=== PATIENT | female | born 1960 | race Caucasian/White ===

== ENCOUNTER 2019-03-08 16:07 | Emergency (ER) | payer MEDICAID, OTHER ==
[~2019-03-08] VITALS: Ht 152.4 cm; Wt 86.4 kg
[2019-03-08] MEDS ORDERED: METF-960 PO (16:25)
[2019-03-08] MEDS ORDERED: [UNRECOGNIZED DRUG - OTHER] PO (16:25)
[2019-03-08] MEDS ORDERED: EMPA10TA PO (16:25)
[2019-03-08] MEDS ORDERED: LISI-661 PO (16:25)
[2019-03-08] MEDS ORDERED: HYDR25TA PO (16:25)
[2019-03-08 16:30] LABS: GLUCOSE,POINT OF CARE 262 MG/DL (70-110)
[2019-03-08] MEDS ORDERED: CYCLOBENZAPRINE HCL 10 MG TABLET PO ONE (17:30)
[2019-03-08] MEDS ORDERED: LIDOCAINE 5% TRANSDERMAL PATCH TD ONE (17:30)
[2019-03-08] MEDS ORDERED: KETOROLAC TROMETHAMINE 30 MG/ML VIAL IM ONE (17:30)
[2019-03-08] MEDS ORDERED: HYDROCODONE/ACETAMINOPHEN 5-325 MG TABLET PO ONE (17:30)
[2019-03-08 19:16] VITALS: BP 134/65
== END 2019-03-08 19:19 | disposition home or self-care (01) ==
LOC: EMS 16:17
DX: M54.5 Low back pain (principal); I10 Essential (primary) hypertension; E11.9 Type 2 diabetes mellitus without complications; E78.00 Pure hypercholesterolemia, unspecified; Z79.84 Long term (current) use of oral hypoglycemic drugs; Z79.899 Other long term (current) drug therapy
CPT/HCPCS: 82962; 96372; 99284; J1885

== ENCOUNTER 2020-10-12 14:24 | Emergency (ER) | payer OTHER ==
[~2020-10-12] VITALS: Ht 154.9 cm; Wt 90.9 kg
[~2020-10-12 14:24] MED LIST: EMPA10TA PO; HYDR25TA2 PO; LISI-893 PO; METF-960 PO; [UNRECOGNIZED DRUG - OTHER] PO
[2020-10-12 14:32] VITALS: BP 199/96
[2020-10-12] MEDS ORDERED: SIMV-260 PO (14:51)
[2020-10-12] MEDS ORDERED: DICLOFENAC SODIUM 1% 100 GM GEL [2GM] TP ONE (15:30)
[2020-10-12] MEDS ORDERED: DIAZEPAM 5 MG TABLET PO ONE (15:30)
[2020-10-12] MEDS ORDERED: ACETAMINOPHEN 500 MG TABLET PO ONE (15:30)
[2020-10-12] MEDS ORDERED: KETOROLAC TROMETHAMINE 30 MG/ML VIAL IM ONE (15:30)
== END 2020-10-12 17:36 | disposition home or self-care (01) ==
LOC: EMS 14:30
DX: M75.31 Calcific tendinitis of right shoulder (principal); E11.9 Type 2 diabetes mellitus without complications; E78.00 Pure hypercholesterolemia, unspecified; I10 Essential (primary) hypertension; Z90.89 Acquired absence of other organs; Z79.84 Long term (current) use of oral hypoglycemic drugs
CPT/HCPCS: 73030; 82962; 96372; 99284; J1885

== ENCOUNTER 2023-01-17 20:59 | Emergency (ER) | payer OTHER ==
[~2023-01-17] VITALS: Ht 152.4 cm; Wt 82.7 kg
[~2023-01-17 20:59] MED LIST changes: -EMPA10TA PO; -LISI-893 PO; +METF-1211 PO; -METF-960 PO; +SIMV-260 PO; -[UNRECOGNIZED DRUG - OTHER] PO
[2023-01-17] MEDS ORDERED: EMPA10TA3 PO (21:11)
[2023-01-17] MEDS ORDERED: INSU100I26 SQ (21:11)
[2023-01-17] MEDS ORDERED: LISI10TA24 PO (21:11)
[2023-01-17 21:13] VITALS: BP 182/80; PULSE 72; RESP 16; TEMP 98.2
[2023-01-17 21:26] LABS: GLUCOMETER DEV NAME(LOC) ERT.5; GLUCOSE,POINT OF CARE 153 MG/DL (70-110)
[2023-01-18] MEDS ORDERED: POLY119P3 PO (00:30)
[2023-01-18] MEDS ORDERED: NA P133E8 PR (00:30)
== END 2023-01-18 00:41 | disposition home or self-care (01) ==
LOC: EMS 21:00
DX: K59.00 Constipation, unspecified (principal); E11.9 Type 2 diabetes mellitus without complications; E78.00 Pure hypercholesterolemia, unspecified; I10 Essential (primary) hypertension; Z90.49 Acquired absence of other specified parts of digestive tract
CPT/HCPCS: 74018; 82962; 99283

== ENCOUNTER 2023-06-25 09:12 | Emergency (ER) | payer OTHER ==
[~2023-06-25] VITALS: Ht 157.5 cm; Wt 81.8 kg
[~2023-06-25 09:12] MED LIST changes: +EMPA10TA3 PO; +INSU100I26 SQ; +LISI10TA24 PO; +NA P133E8 PR; +POLY119P3 PO; -SIMV-260 PO
[2023-06-25 09:17] VITALS: TEMP 97.9
[2023-06-25 10:44] LABS: APPEARANCE,URINE HAZY (CLEAR); BILIRUBIN,URINE NEGATIVE (NEGATIVE); COLOR,URINE YELLOW (YELLOW); GLUCOSE, URINE (UA) 300-500 mg/dL (NEGATIVE); KETONES,URINE NEGATIVE (NEGATIVE); LEUKOCYTE ESTERASE ,URINE LARGE (NEGATIVE); NITRATE,URINE NEGATIVE (NEGATIVE); OCCULT BLOOD,URINE TRACE (NEGATIVE); PROTEIN,URINE TRACE mg/dL (NEGATIVE); SPECIFIC GRAVITIY, URINE 1.021 (1.003-1.030); UROBILINOGEN,URINE <=1.0 mg/dL (<=1.0)
[2023-06-25] MEDS: CEPHALEXIN MONOHYDRATE 500 MG CAPSULE PO ONE (11:14)
[2023-06-25 11:19] LABS: BACTERIA,URINE Few /HPF (None Seen); SQUAMOUS EPITHELIAL CELL,UR Few /LPF (None Seen)
[2023-06-25] MEDS ORDERED: CEPH-558 PO (11:25)
[2023-06-25] MEDS ORDERED: CLOT15CR74 TP (11:25)
[2023-06-25 11:33] VITALS: BP 160/89; PULSE 73; RESP 16
== END 2023-06-25 12:52 | disposition home or self-care (01) ==
LOC: EMS 09:12
DX: N39.0 Urinary tract infection, site not specified (principal); B37.31 Acute candidiasis of vulva and vagina; E11.9 Type 2 diabetes mellitus without complications; E78.00 Pure hypercholesterolemia, unspecified; I10 Essential (primary) hypertension; Z90.49 Acquired absence of other specified parts of digestive tract
CPT/HCPCS: 81001; 87086; 87186; 99283